=== PATIENT | female | born 1985 | race Caucasian/White ===

== ENCOUNTER 2017-10-16 23:01 | Emergency (ER) | payer SELFPAY ==
[2017-10-16 23:04] VITALS: TEMP 98.6
[2017-10-16 23:27] LABS: BASO # 0.1 (0.0-0.2); BASO % 0.6 % (0.0-2.0); EOS # 0.2 (0.0-0.7); EOS % 1.9 % (0-4.0); GRAN # 4.8 (1.4-6.5); GRAN % 48.6 % (42.2-75.2); HEMOGLOBIN 12.6 g/dl (12.5-16.0); LYMPH # 4.1 (1.2-3.4); LYMPH % 41.2 % (20.0-51.0); MEAN CELL VOLUME 90 fl (80.0-100.0); MEAN CORPUSCULAR HEMOGLOBIN 31 pg (27.0-31.0); MEAN CORPUSCULAR HGB CONC 34 g/dl (33.0-37.0); MEAN PLATELET VOLUME 9.4 fl (7.4-10.4); MONO # 0.7 (0.1-0.6); MONO % 7.5 % (1.7-9.3); PLATELET COUNT 219 K/mm3 (130-400); RED BLOOD COUNT 4.11 M/mm3 (4.10-5.30); REDCELL DISTRIBUTION WIDTH-CV 11.9 % (11.5-14.5)
[2017-10-16 23:31] LABS: HEMATOCRIT 36.9 % (37.0-47.0)
[2017-10-16 23:36] LABS: ALANINE AMINOTRANSFERASE 46 U/L (9-52); ALBUMIN 3.9 gm/dL (3.5-5.0); ALKALINE PHOSPHATASE 63 U/L (50-136); ANION GAP 12 mmol/L (7-16); AST,SGOT 30 U/L (15-37); BILIRUBIN,TOTAL 0.3 mg/dL (0.0-1.0); BLOOD UREA NITROGEN 16 mg/dL (7-17); CALCIUM 9.5 mg/dL (8.4-10.2); CARBON DIOXIDE 26 mmol/L (22-30); CHLORIDE 104 mmol/L (98-107); CREATININE, serum 0.71 mg/dL (0.52-1.25); GLUCOSE 123 mg/dL (74-106); LIPASE 205 U/L (23-300); POTASSIUM 3.8 mmol/L (3.4-5.0); SODIUM 141 mmol/L (137-145); TOTAL PROTEIN 7.7 gm/dL (6.4-8.2)
[2017-10-16 23:44] LABS: COLLECTION METHOD CLEAN CATCH
[2017-10-16 23:48] LABS: TROPONIN-I < 0.012 ng/mL (0.000-0.034)
[2017-10-16 23:49] LABS: PH 7 (5-8); SQUAMOUS EPITHELIAL 0-2 /hpf; URINE APPEARANCE Clear; URINE BACTERIA None Seen /hpf; URINE BILIRUBIN Negative (NEGATIVE); URINE BLOOD Negative (NEGATIVE); URINE COLOR Straw; URINE GLUCOSE Negative (NEGATIVE); URINE KETONE Negative (NEGATIVE); URINE LEUKOCYTE ESTERASE Negative (NEGATIVE); URINE NITRATE Negative (NEGATIVE); URINE PROTEIN(semi-quant) Negative (NEGATIVE); URINE RBC 0-2 /hpf; URINE UROBILINOGEN Negative (NEGATIVE)
[2017-10-17 01:33] VITALS: BP 118/92; PULSE 96
== END 2017-10-17 01:35 | disposition home or self-care (01) ==
LOC: COL.ER 23:01
PROVIDERS: Emergency Medicine
DX: R07.9 Chest pain, unspecified (principal)

== ENCOUNTER 2019-05-05 15:15 | Emergency (ER) | payer BC ==
[~2019-05-05] VITALS: Ht 160 cm; Wt 61.4 kg
[2019-05-05 15:19] VITALS: TEMP 98
[2019-05-05] MEDS ORDERED: PRENATAL TABLET PO (15:25)
[2019-05-05 16:27] LABS: ALBUMIN 4.6 gm/dL (3.5-5.0); BILIRUBIN,TOTAL 0.4 mg/dL (0.0-1.0); CALCIUM 9.2 mg/dL (8.4-10.2); CREATININE, serum 0.67 (0.52-1.25); POTASSIUM 3.8 mmol/L (3.4-5.0)
[2019-05-05 16:58] LABS: TSH w REFLEX 1.08 uIU/mL (0.465-4.680)
[2019-05-05 17:02] LABS: BASO # 0.1 (0.0-0.2); BASO % 0.6 % (0.0-2.0); EOS # 0.1 (0.0-0.7); EOS % 0.8 % (0-4.0); GRAN # 5.9 (1.4-6.5); GRAN % 66.1 % (42.2-75.2); HEMATOCRIT 41.9 % (37.0-47.0); HEMOGLOBIN 14.1 g/dl (12.5-16.0); LYMPH # 2.4 (1.2-3.4); LYMPH % 26.9 % (20.0-51.0); MEAN CELL VOLUME 90 fl (80.0-100.0); MEAN CORPUSCULAR HEMOGLOBIN 30 pg (27.0-31.0); MEAN CORPUSCULAR HGB CONC 34 g/dl (33.0-37.0); MEAN PLATELET VOLUME 9.9 fl (7.4-10.4); MONO # 0.5 (0.1-0.6); MONO % 5.1 % (1.7-9.3); PLATELET COUNT 251 K/mm3 (130-400); RED BLOOD COUNT 4.67 M/mm3 (4.10-5.30); REDCELL DISTRIBUTION WIDTH-CV 11.7 % (11.5-14.5)
[2019-05-05 17:55] VITALS: BP 120/85; PULSE 96
== END 2019-05-05 17:55 | disposition home or self-care (01) ==
LOC: COL.ER
PROVIDERS: Emergency Medicine
DX: G43.909 Migraine, unspecified, not intractable, without status migrainosus (principal); R00.2 Palpitations; Z88.5 Allergy status to narcotic agent
CPT/HCPCS: J0780; J1200; J1885; J7030

== ENCOUNTER 2019-10-24 08:07 | Day surgery (SDC) | payer BC ==
[~2019-10-24] VITALS: Ht 160 cm; Wt 59.5 kg
[~2019-10-24 08:07] MED LIST: PRENATAL TABLET PO
[2019-10-24] MEDS ORDERED: MAG-OX 400400 MG/TAB PO (08:23)
[2019-10-24] MEDS ORDERED: MASON NATURAL S1 CAP (08:24)
[2019-10-24 08:25] VITALS: BP 125/90; PULSE 72; TEMP 97.5
--- NOTE | 2019-10-24 08:40 | NUR ---
0840-Iv started without difficulty and fluids are infusing easily. Patient changed into gown and given a warm blanket for comfort. Patient reports that she was told yesterday by someone on the phone that she would not have sedation for these procedures and that she would be awake. She is very anxious about this. Reassurance and detailed explanation provided as she will have moderate sedation for both procedures. Patient calmed after hearing this. Spouse brought back to sit with her.
[2019-10-24 09:45] VITALS: BP 118/82; PULSE 64; TEMP 97.7
--- NOTE | 2019-10-24 09:45 | NUR ---
0944-Patient assisted with ambulating from cart to recliner and she did well. Spouse at bedside with her. She denies having any pain or nausea at present. Vitals are stable. Call flores in reach. [id number]-Dr. Shen is in to speak with patient and discuss procedure findings. Questions addressed. Patient given apple juice and pudding per request. Will continue to monitor status.
[2019-10-24 10:00] VITALS: BP 117/73; PULSE 66
--- NOTE | 2019-10-24 10:00 | NUR ---
1000-Patient continues resting comfortably and vitals are stable. Given additional juice and pudding per request. She denies having any nausea or pain.
[2019-10-24 10:15] VITALS: BP 123/76; PULSE 69; TEMP 97.8
--- NOTE | 2019-10-24 10:15 | NUR ---
1015-Patient continues doing well and vitals are stable. Tolerated apple juice and pudding x2 without any nausea or vomiting. Discussed h. pylori negative result with her and her spouse. 1017-IV site removed and patient tolerated well. Cotton ball and coban wrap applied. Patient is getting dressed and ready for discharge home.
--- NOTE | 2019-10-24 10:25 | NUR ---
1025-Patient is dressed and ready for discharge home. Discussed discharge instructions with her and her spouse. No additional questions or concerns at this time. 1040-Taken via wheelchair and assisted into private vehicle with her spouse at this time. She did very well.
== END 2019-10-24 10:40 | disposition home or self-care (01) ==
LOC: SDCO 08:07
DX: K51.90 Ulcerative colitis, unspecified, without complications (principal); K64.8 Other hemorrhoids; K29.60 Other gastritis without bleeding; K63.9 Disease of intestine, unspecified; R19.7 Diarrhea, unspecified; I34.1 Nonrheumatic mitral (valve) prolapse; R01.1 Cardiac murmur, unspecified; Z88.5 Allergy status to narcotic agent; Z79.899 Other long term (current) drug therapy; Z83.79 Family history of other diseases of the digestive system
CPT/HCPCS: J2250; J3010; J7030

== ENCOUNTER 2020-04-02 12:17 | Emergency (ER) | payer BC ==
[~2020-04-02] VITALS: Ht 160 cm; Wt 59.1 kg
[~2020-04-02 12:17] MED LIST changes: +MAG-OX 400400 MG/TAB PO; +MASON NATURAL S1 CAP
[2020-04-02 12:24] VITALS: TEMP 98.5
[2020-04-02 13:14] LABS: COLLECTION METHOD CLEAN CATCH
[2020-04-02 13:39] LABS: BASO % 0.4 % (0.0-2.0); EOS % 0.3 % (0-4.0); GRAN # 6.9 (1.4-6.5); GRAN % 68.6 % (42.2-75.2); HEMATOCRIT 40.8 % (37.0-47.0); HEMOGLOBIN 13.8 g/dl (12.5-16.0); LYMPH # 2.7 (1.2-3.4); LYMPH % 26.4 % (20.0-51.0); MEAN CELL VOLUME 90 fl (80.0-100.0); MEAN CORPUSCULAR HEMOGLOBIN 30 pg (27.0-31.0); MEAN CORPUSCULAR HGB CONC 34 g/dl (33.0-37.0); MEAN PLATELET VOLUME 10.1 fl (7.4-10.4); MONO # 0.4 (0.1-0.6); MONO % 3.9 % (1.7-9.3); PLATELET COUNT 250 K/mm3 (130-400); RED BLOOD COUNT 4.56 M/mm3 (4.10-5.30); REDCELL DISTRIBUTION WIDTH-CV 11.8 % (11.5-14.5)
[2020-04-02 13:43] LABS: MUCOUS Present /lpf; PH 6 (5-8); SQUAMOUS EPITHELIAL 0-2 /hpf; URINE APPEARANCE Clear; URINE BACTERIA Rare /hpf; URINE BILIRUBIN Negative (NEGATIVE); URINE BLOOD Negative (NEGATIVE); URINE COLOR Yellow; URINE GLUCOSE Negative (NEGATIVE); URINE KETONE Trace (NEGATIVE); URINE LEUKOCYTE ESTERASE Negative (NEGATIVE); URINE NITRATE Negative (NEGATIVE); URINE PROTEIN(semi-quant) Negative (NEGATIVE); URINE RBC 0-2 /hpf; URINE UROBILINOGEN Negative (NEGATIVE)
[2020-04-02 13:47] LABS: ALANINE AMINOTRANSFERASE 16 U/L (4-34); ALBUMIN 4.6 gm/dL (3.5-5.0); ALKALINE PHOSPHATASE 65 U/L (50-136); ANION GAP 9 mmol/L (7-16); AST,SGOT 42 U/L (15-37); BILIRUBIN,TOTAL 0.5 mg/dL (0.0-1.0); BLOOD UREA NITROGEN 9 mg/dL (7-17); CALCIUM 9.1 mg/dL (8.4-10.2); CARBON DIOXIDE 27 mmol/L (22-30); CHLORIDE 103 mmol/L (98-107); CREATININE, serum 0.68 (0.52-1.25); GLUCOSE 142 mg/dL (74-106); POTASSIUM 3.5 mmol/L (3.4-5.0); SODIUM 139 mmol/L (137-145); TOTAL PROTEIN 7.6 gm/dL (6.4-8.2)
[2020-04-02 13:49] LABS: C-REACTIVE PROTEIN < 0.5 mg/dL (0.0-0.9)
[2020-04-02] MEDS ORDERED: ULTRAM 50MG TAB50 MG PO (16:02)
[2020-04-02 16:16] VITALS: BP 124/76; PULSE 74
== END 2020-04-02 16:15 | disposition home or self-care (01) ==
LOC: COL.ER 12:17
PROVIDERS: Nurse Practitioner Primary Care
DX: N83.201 Unspecified ovarian cyst, right side (principal); Z88.6 Allergy status to analgesic agent

== ENCOUNTER → 2022-02-05 | Outpatient (CLI) | payer BC ==
[~2022-02-05] MED LIST changes: +ULTRAM 50MG TAB50 MG PO
== END ==
LOC: COL.RAD 09:15
DX: G43.109 Migraine with aura, not intractable, without status migrainosus (principal)
CPT/HCPCS: A9575

== ENCOUNTER 2023-04-15 05:27 | Day surgery (SDC) | payer BC ==
[~2023-04-15] VITALS: Ht 157.5 cm; Wt 67.1 kg
[~2023-04-15 05:27] MED LIST changes: +EFFEXOR-XR150 MG PO; +MAXALT5 MG PO; +MULTIPLE VITAMI1 CAP PO; +NAPROSYN500 MG PO; +NURTEC ODT75 MG PO; +ZOFRAN ODT8 MG PO
[2023-04-15 06:16] VITALS: BP 132/91; PULSE 81; TEMP 97.8
[2023-04-15 08:05] VITALS: BP 115/80; PULSE 94; TEMP 97.1
[2023-04-15 08:20] VITALS: BP 118/78; PULSE 86
[2023-04-15 08:35] VITALS: BP 122/72; PULSE 89
--- NOTE | 2023-04-15 09:05 | NUR ---
0805-PT TO BAY 8 PER CART FROM OR. REPORT RECEIVED. VS OBTAINED. CALL LIGHT WITHIN REACH. SIDE RAILS UP X2. PT RESTING COMFORTABLY AND DENIES ANY PAIN. 0830-PT TOLERATING WATER AND APPLESAUCE. 0850-PT UP TO RESTROOM AND VOIDED WITHOUT DIFFICULTY. PT AMBULATED WITH STAND BY ASSIST. PT ABLE TO DRESS SELF WITHOUT ASSISTANCE. 0855-DISCHARGE EDUCATION COMPELTED WITH PT AND HER . VERBALIZED UNDERSTANDING OF HOME AND FOLLOW UP CARE. ALL QUESTIONS ANSWERED. DISCHARGE PAPERWORK GIVEN TO PT. 0905-PT OFF UNIT PER WHEELCHAIR. PT DISCHARGED TO HOME WITH PER PERSONAL VEHICLE.
== END 2023-04-15 09:05 | disposition home or self-care (01) ==
LOC: SDCO 05:27
DX: M21.612 Bunion of left foot (principal); M20.12 Hallux valgus (acquired), left foot; I34.1 Nonrheumatic mitral (valve) prolapse; Z79.899 Other long term (current) drug therapy
CPT/HCPCS: C1713; J0665; J0690; J1100; J2405; J2704; J3010; J7120